=== PATIENT | female | born 1960 | race Caucasian/White ===

== ENCOUNTER 2021-05-17 13:37 | Emergency (ER) | payer OTHER, SELFPAY ==
--- NOTE | 2021-05-17 13:40 | ED.GENADULT ---
HPI - General Adult General Chief complaint: Skin/Abscess/Foreign Body Stated complaint: possible insect bite Time Seen by Provider: 05/17/21 13:40 Source: patient Mode of arrival: ambulatory Limitations: no limitations History of Present Illness HPI narrative: 60 y/o female. PMH includes: None reported. Presents to [facility] today with acute complaints of insect bite located to posterior left neck behind ear. She notes worsening redness and wound irritation for the past 72 hours. Pt reports to have not actually visualized culprit, but felt something sting behind her ear. No fevers, chills. No myalgias. No auditory changes or loss. No open wounds or additional areas of integumentary involvement. She tells me she felt the need to get the area evaluated because it is starting to look infected . Client is without additional acute complaints of illness upon exam. Related Data Home Medications Medication Instructions Recorded Confirmed benzonatate mg PO 05/17/21 Allergies Allergy/AdvReac Type Severity Reaction Status Date / Time No Known Allergies Allergy Unverified 03/07/16 11:02 Review of Systems Review of Systems: Narrative: CONSTITUTIONAL: Denies fever, chills, sweats. EYES: Denies visual changes, redness, discharge. ENT: Denies rhinorrhea, congestion, sore throat, otalgia. CARDIOVASCULAR: Denies chest pain, palpitations, edema. RESPIRATORY: Denies dyspnea, wheezing, cough GASTROINTESTINAL: Denies abdominal pain, nausea, vomiting, diarrhea. GENITOURINARY: Denies dysuria, hematuria, abnormal discharge SKIN: Redness and itching left neck. MUSCULOSKELETAL: Denies acute back pain, joint pain, or myalgia. NEUROLOGIC: Denies numbness, or focal weakness. PSYCHIATRIC: Denies anxiety or depression. All systems reviewed & are unremarkable except as noted in HPI and below Exam Narrative: Exam Narrative: GENERAL: This is a well-nourished, well-developed patient, in no apparent distress. HEAD: normocephalic, atraumatic. EYES: PERRL. Sclera clear/white. EARS: External ears normal, auditory canals clear and without drainage. NOSE: External nose normal. THROAT: Mucous membranes moist, posterior pharynx clear. NECK: Neck supple, non-tender without lymphadenopathy, masses or thyromegaly. Insect bite posterior left neck-Refer to SKIN below. CARDIOVASCULAR: Regular rate and rhythm without murmurs, gallops, or rubs. RESPIRATORY: Clear to auscultation. Breath sounds equal bilaterally. GASTROINTESTINAL: Abdomen soft, non-tender, nondistended. SKIN: Warm, dry, & intact. With 2 cm area of erythema and serosanguineous discharge located to posterior left neck, behind left ear. Superficial scratching to area, most likely DT report of pruritis. No fluctuance. No central clearing or additional discoloration to area. Remainder of integumentary exam is negative. NEURO: No obvious focal neurologic abnormalities. Steady gait. Course Vital Signs Vital signs: Vital Signs Temperature 36.6 C 05/17/21 13:46 Pulse Rate 82 05/17/21 13:46 Respiratory Rate 12 05/17/21 13:46 Blood Pressure 144/96 H 05/17/21 13:46 Pulse Oximetry 100 05/17/21 13:46 Temperature 36.6 C 05/17/21 13:46 Pulse Rate 82 05/17/21 13:46 Respiratory Rate 12 05/17/21 13:46 Blood Pressure 144/96 H 05/17/21 13:46 Pulse Oximetry 100 05/17/21 13:46 The patient has been informed that they may have pre-hypertension or Hypertension based on a BP reading in the clinic. It is recommended that the patient call the primary care provider listed on their discharge instructions or a physician of their choice as soon as possible (within 1-2week) to arrange follow up for further evaluation of possible pre-hypertension or hypertension. Medical Decision Making MDM Narrative Medical decision making narrative: -Superficial Cellulitis secondary to insect bite. -No fluctuance. No additional areas of integumentary involvement. -Start topical B
[2021-05-17 13:46] VITALS: BP 144/96; PULSE 82; RESP 12; TEMP 36.6; O2SAT 100
== END 2021-05-17 13:55 | disposition home or self-care (01) ==
PROVIDERS: Emergency Provider Nurse Practitioner Adult Health; PCP Family Medicine
DX: L03.221 Cellulitis of neck (principal)
CPT/HCPCS: 99203; G0463

== ENCOUNTER 2022-09-07 09:15 | Emergency (ER) | payer OTHER, SELFPAY ==
--- NOTE | ~2022-09-07 | XR_ITS ---
EXAMINATION: XR hand RT min 3V INDICATION: Right hand pain and laceration TECHNIQUE: Three views of the right hand are obtained. COMPARISON: None available FINDINGS: Bone alignment is normal. There is no fracture. There is mild osteoarthritis of multiple in terphalangeal joints. There is laceration and soft tissue swelling of the dorsal hand overlying the c arpals and metacarpals. IMPRESSION: 1. Laceration and soft tissue swelling of the hand without underlying acute osseous abnormality. Reviewed, dictated and finalized at location B. IMPRESSION: 1. Laceration and soft tissue swelling of the hand without underlying acute oss eous abnormality.
[2022-09-07 09:48] VITALS: BP 145/101; PULSE 77; RESP 16; TEMP 36.7; O2SAT 97
[2022-09-07 11:19] VITALS: BP 146/100; PULSE 86; RESP 14; O2SAT 99
--- NOTE | 2022-09-07 11:19 | ED.ANIMALBIT ---
HPI - Animal Bite General Chief Complaint: Animal Bite Stated Complaint: Right hand Time Seen by Provider: 09/07/22 09:27 History of Present Illness HPI narrative: Patient is a 61-year-old female who presents ER with lacerations to the right hand. Patient was trying to separate 2 dogs that were fighting when she injured her hand. She is unsure if her hand got caught in a collar, by nail, or bit. She is unsure of her last tetanus shot. No numbness or tingling. No functional deficit in her hand. Laceration over the dorsal aspect of the hand and additional punctures near the fifth MCP and base of thumb. Bleeding controlled. Related Data Home Medications Medication Instructions Recorded Confirmed benzonatate 200 mg capsule mg PO 05/17/21 Allergies Allergy/AdvReac Type Severity Reaction Status Date / Time No Known Allergies Allergy Unverified 03/07/16 11:02 Review of Systems Review of Systems: All systems reviewed & are unremarkable except as noted in HPI and below Constitutional: Constitutional: Denies chills and Denies fever(s) Musculoskeletal: Musculoskeletal: Denies back pain, Denies arthralgias and Denies joint swelling Integumentary/Breasts: Skin/Breast: Denies rash and Denies skin ulcer Comments: Hand laceration puncture wound. Neurologic: Denies focal weakness and Denies numbness PMFSH Past Medical History Medical History (Updated 09/07/22 @ 11:28 by Hector Roberts MD) GERD (gastroesophageal reflux disease) Surgical History Surgical History (Updated 09/07/22 @ 11:28 by Hector Roberts MD) History of hysterectomy Social History Social History (Updated 09/07/22 @ 11:28 by Hector Roberts MD) Smoking status: Never smoker Exam Narrative: GENERAL: Well-appearing, well-nourished, and in no acute distress. HEAD: Normocephalic, atraumatic. HEART: Regular rate and rhythm. Normal peripheral pulses. EXTREMITIES: Normal range of motion. No edema. Normal strength in the hand. SKIN: Warm, dry, no rash. 5 cm laceration to the dorsal aspect of the right hand without visualization of long bloodless field. Additional puncture wounds of the hand mainly at the right fifth MCP and base of the thumb. NEURO: No focal deficits. Alert and oriented x3. PSYCH: Normal mood and affect. Course Course Emergency Course: Patient resting comfortably. Tetanus updated. Wound repaired. Loose approximation of the large wound with central area open in case infection develops and may drain. Puncture wounds irrigated but not closed. Discussed need for suture removal in 10 days need follow-up with PCP for wound evaluation and patient verbalized understanding. Vital Signs Vital signs: Vital Signs Temperature 98.1 F 09/07/22 09:48 Pulse Rate 77 09/07/22 09:48 Respiratory Rate 16 09/07/22 09:48 Blood Pressure 145/101 H 09/07/22 09:48 Pulse Oximetry 97 09/07/22 09:48 Temperature 98.1 F 09/07/22 09:48 Pulse Rate 77 09/07/22 09:48 Respiratory Rate 16 09/07/22 09:48 Blood Pressure 145/101 H 09/07/22 09:48 Pulse Oximetry 97 09/07/22 09:48 Procedures Laceration Laceration 1: Date: 09/07/22 Time: 11:00 Site: hand Side (If applicable): right Size (cm): 5 Description: irregular Depth: simple, single layer Local Anesthetic: lidocaine 2% and with epi Amount of anesthesia used (mL): 5 Pre-repair: irrigated extensively and deep structures intact ====== Skin Level ====== Skin layer closed with: nylon Size (cm): 4-0 Number of sutures: 5 Technique: simple, interrupted and other (Loose approximation) ====== Subcutaneous Layer ====== ====== Muscle Layer ====== ====== Tendon Layer ====== Discharge Plan Discharge Clinical Impression: Bite by animal, Laceration Patient Disposition: Home, Self-Care Condition: Stable Instructions: Antibiotic Form,
[2022-09-07] MEDS: TETANUS,DIPHTHERIA,AC PERTUSSIS ADULT (0.5 ML) BOOSTRIX IM (11:26)
== END 2022-09-07 11:33 | disposition home or self-care (01) ==
PROVIDERS: Emergency Provider Emergency Medicine; PCP Family Medicine
DX: S61.411A Laceration without foreign body of right hand, initial encounter (principal); W54.0XXA Bitten by dog, initial encounter; Z23 Encounter for immunization; K21.9 Gastro-esophageal reflux disease without esophagitis
CPT/HCPCS: 12002; 73130; 90471; 90715; 99283

== ENCOUNTER 2023-03-26 08:18 | Emergency (ER) | payer OTHER, SELFPAY ==
--- NOTE | ~2023-03-26 | CT_ITS ---
EXAMINATION: CT abdomen pelvis w con DATE: 03/26/2023 09:24 INDICATION: Left lower quadrant abdominal pain TECHNIQUE: Computed tomography (CT) of the abdomen and pelvis was performed with 100 cc Omnipaque 350 intravenous contrast. The dose-length product was 646.52 mGy-cm. Automated exposure control and iter ative reconstruction technique were employed. COMPARISON: None. FINDINGS: There is dependent atelectasis. Heart size normal. No significant pleural or pericardial ef fusion. Small hiatal hernia. No significant vascular abnormality. There is a retroaortic left renal v ein. No significant lymphadenopathy. Small fat-containing umbilical hernia. There is a duodenal diver ticulum. Fatty infiltration of the liver. There are small liver and bilateral renal cysts. There is a small ac cessory splenule inferior to the spleen. There are colonic diverticula with inflammatory changes surr ounding the sigmoid colon, consistent with acute diverticulitis. No evidence for perforation or absce ss. No free air. There is a small left adnexal cyst measuring 1.5 cm, possibly a a functional ovarian or peritoneal inclusion cyst. There is scattered areas of sclerosis of the visualized spine and sacr um which may relate to demineralization, although metastatic disease is not excluded. IMPRESSION: 1. Acute uncomplicated sigmoid diverticulitis. 2: Scattered areas of sclerosis of the visualized spine and sacrum which may relate to demineralizati on, although metastatic disease is not excluded. Correlate for history of malignancy. Reviewed, dictated and finalized at location L. IMPRESSION: 1. Acute uncomplicated sigmoid diverticulitis. 2: Scattered areas of sclerosis of the visualized spine and sacrum which may re late to demineralization, although metastatic disease is not excluded. Correlat e for history of malignancy.
[2023-03-26 08:20] VITALS: BP 133/96; PULSE 79; RESP 16; TEMP 36.8; O2SAT 99
[2023-03-26 08:48] LABS: Basophils Absolute Auto 0.1 K/mm3 (0.0-0.1); Basophils Percent Auto 0.6 % (0.2-1.2); Eosinophils Absolute Auto 0.2 K/mm3 (0-0.3); Eosinophils Percent Auto 2.1 % (0-4.4); Hematocrit 43.4 % (37.0-47.0); Hemoglobin 14.1 g/dL (12.0-15.0); Immature Granulocyte Absolute 0.07 K/mm3 (0.00-0.031); Immature Granulocyte Percent A 0.7 % (0-0.5); Lymphocytes Absolute Auto 0.88 K/mm3 (0.9-3.2); Lymphocytes Percent Auto 8.2 % (18.3-44.2); Mean Corpuscular HGB Conc 32.5 g/dl (32-36); Mean Corpuscular Hemoglobin 31.3 pg (26-34); Mean Corpuscular Volume 96.4 fl (80-100); Mean Platelet Volume 10.3 fl (7.4-10.4); Monocytes Absolute Auto 0.9 K/mm3 (0.1-0.6); Monocytes Percent Auto 8.6 % (2.6-8.5); Neutrophils Absolute Auto 8.6 K/mm3 (1.3-6.7); Neutrophils Percent Auto 79.8 % (45.5-73.1); Platelet Count Result 205 k/mm3 (150-375); Red Cell Distribution Width 13.1 % (11.5-14.5); White Blood Count 10.8 K/mm3 (4.5-10.0)
[2023-03-26 09:00] LABS: Alanine Aminotransferase 25 U/L (6-35); Albumin Level 4.3 g/dL (3.5-5.1); Alkaline Phosphatase 91 U/L (38-126); Anion Gap 8 mmol/L (8-16); Aspartate Amino Transferase 27 U/L (14-36); Bilirubin,Total 1.6 mg/dL (0.2-1.3); Blood Urea Nitrogen 13 mg/dL (7-17); Calcium 9.1 mg/dL (8.4-10.2); Carbon Dioxide 26 mmol/L (22-30); Chloride 105 mmol/L (98-107); Estimated CRCL calculation 52 ml/min; Estimated Glomerular Filt Rate 50; Glucose 113 mg/dL (65-110); Lipase 41 U/L (23-300); Potassium 4.5 mmol/L (3.4-5.0); Sodium 139 mmol/L (137-145)
[2023-03-26 09:05] LABS: Add Urine Microscopic? YES; Appearance Urine Clear (Clear); Bacteria Urine None Seen /hpf; Bilirubin Urine Negative (Negative); Blood Urine Negative (Negative); Color Urine Yellow (Yellow); Glucose Urine UA Negative (Negative); Ketones Urine Trace mg/dL (Negative); Leukocyte Esterase Ur 1+ LEU/UL (Negative); Need Manual Microscopic Reviewed; Nitrate Urine Negative (Negative); Non Pathogenic Casts 0-2; Protein Urine Negative (Negative); RBC Urine 0-2 /hpf (0-2); Specific Grav Ur 1.024 (1.001-1.035); Squamous Epithelial Cell Urine Occasional /hpf (Few); WBC Urine 0-5 /hpf
--- NOTE | 2023-03-26 09:30 | ED.ABDPAIN ---
HPI - Abdominal Pain General Chief Complaint: Abdominal Pain Stated Complaint: Abdominal pain Time Seen by Provider: 03/26/23 08:54 History of Present Illness HPI narrative: This is a 62-year-old female with ported history of GERD, who presents to the emergency department complaining of left lower quadrant abdominal pain for the past day. She states yesterday evening, she developed cramping and intermittently sharp left lower quadrant pain that was worse with movement. She also notes recent constipation. She denies nausea or vomiting, bleeding from any source, dysuria or chest pain. Related Data Home Medications Medication Instructions Recorded Confirmed pantoprazole 40 mg tablet,delayed 40 mg PO DAILY 03/26/23 release Allergies Allergy/AdvReac Type Severity Reaction Status Date / Time No Known Allergies Allergy Verified 03/26/23 08:31 Review of Systems Review of Systems: CONSTITUTIONAL: Denies fever, chills, or sweats. CARDIOVASCULAR: Denies chest pain, palpitations, or edema. RESPIRATORY: Denies cough or dyspnea. GASTROINTESTINAL: Left lower quadrant abdominal pain denies nausea, vomiting, or diarrhea. GENITOURINARY: Denies dysuria or hematuria. MUSCULOSKELETAL: Denies back pain, joint pain, or myalgia. NEUROLOGIC: Denies headache, numbness, dizziness, or weakness. PSYCHIATRIC: Denies anxiety or depression. [facility] Past Medical History Medical History GERD (gastroesophageal reflux disease) Surgical History Surgical History History of hysterectomy Social History Social History Smoking status: Never smoker Exam Narrative: GENERAL: Well-developed, well-nourished, and in no acute distress. HEAD: Normocephalic, atraumatic. EYES: PERRLA and EOMI. ENT: Nares clear, no rhinorrhea or epistaxis. Mucous membranes moist. Oropharynx without tonsillar hypertrophy exudate or other lesions. CHEST: Clear to auscultation. No respiratory distress. No wheezes rales or rhonchi HEART: Regular rate and rhythm. No murmur heard. Normal peripheral pulses. ABDOMEN: Soft, tender palpation in the left lower quadrant, without rebound but active guarding, nondistended, normal active bowel sounds. No CVA tenderness to palpation EXTREMITIES: Normal range of motion. No edema. SKIN: Warm, dry, no rash. NEURO: No focal deficits. Alert and oriented x3. PSYCH: Normal mood and affect. Course Course Emergency Course: 10:02 - The abdomen pelvis demonstrates uncomplicated diverticulitis in the sigmoid colon. White blood cell count slightly elevated to 10.8. CBC otherwise unremarkable. Chemistries demonstrate mildly elevated creatinine of 1.1 with an unknown baseline. Lactic acid 0.8. Chemistries otherwise unremarkable. UA demonstrates trace ketones and 1+ leukocyte esterase but is otherwise unremarkable. I suspect the patient's pain is due to diverticulitis. Will p.o. challenge with medications and reassess 10:36 - The patient tolerated p.o. meds without difficulty. Will discharge with oral antibiotics and recommendation for primary care follow-up in 1 week. Discussed return and emergency precautions including signs/symptoms of acute abdomen and sepsis. The patient voiced understanding and is comfortable with the plan. All questions answered to her satisfaction. Vital Signs Vital signs: Vital Signs Temperature 98.3 F 03/26/23 08:20 Pulse Rate 79 03/26/23 08:20 Respiratory Rate 16 03/26/23 08:20 Blood Pressure 133/96 H 03/26/23 08:20 Pulse Oximetry 99 03/26/23 08:20 Temperature 98.3 F 03/26/23 08:20 Pulse Rate 68 03/26/23 10:55 Respiratory Rate 20 03/26/23 10:55 Blood Pressure 137/79 03/26/23 10:55 Pulse Oximetry 100 03/26/23 10:55 MDM - Abdominal Pain MDM Narrative Medical decision making narrative:
--- NOTE | 2023-03-26 09:32 | PC.NURSE ---
Jocelyne from lab called to request new adam top. Adam top sent down wasn't full enough . hydraulic controls technician made aware.
[2023-03-26] MEDS: ONDANSETRON INJ 4 MG/2 ML VIAL IV PUSH (09:53)
[2023-03-26] MEDS: SODIUM CHLORIDE 0.9% IV 1,000 ML 999 ML IV CONT (09:53)
[2023-03-26] MEDS: MORPHINE SULFATE (*CRX) 4 MG/ML INJ IV PUSH (09:55)
[2023-03-26 10:00] LABS: Lactic Acid Reflex 0.8 mmol/L (0.7-2.0)
[2023-03-26] MEDS: metroNIDAZOLE 250 MG TABLET 500 MG PO (10:09)
[2023-03-26] MEDS: CIPROFLOXACIN 500 MG TAB PO (10:09)
[2023-03-26 10:55] VITALS: BP 137/79; PULSE 68; RESP 20; O2SAT 100
== END 2023-03-26 10:56 | disposition home or self-care (01) ==
PROVIDERS: Emergency Provider Preventive Medicine Aerospace Medicine; PCP Family Medicine
DX: K57.32 Diverticulitis of large intestine without perforation or abscess without bleeding (principal); K21.9 Gastro-esophageal reflux disease without esophagitis; Z90.710 Acquired absence of both cervix and uterus; R93.7 Abnormal findings on diagnostic imaging of other parts of musculoskeletal system
CPT/HCPCS: 36415; 74177; 80053; 81001; 83605; 83690; 85025; 96361; 96374; 96375; 99284; A9270; J2270; J2405; J7030; Q9967